=== PATIENT | female | born 1955 | race Caucasian/White ===

== ENCOUNTER 2018-07-24 14:17 | Inpatient (IN) | payer BC ==
[~2018-07-24] VITALS: Ht 157.5 cm; Wt 101.2 kg
[2018-07-24 16:50] VITALS: BP 142/63
--- NOTE | 2018-07-24 17:44 | NUR ---
Dr. Gomez came by at the unit, I let him know that this patient needs admitting orders. He said he was the one in charge but now its Dr. Marie. He said he will let her know
--- NOTE | 2018-07-24 17:56 | NUR ---
Dr. Marie called me, gave her report about this patient. She said she will come and see this patient
[2018-07-24] MEDS ORDERED: normal saline 1000ml 1,000 ML IV SCH (18:24)
[2018-07-24] MEDS ORDERED: potassium Cl 20 mEq SR tablet PO PRN ×2 (18:25)
[2018-07-24] MEDS ORDERED: magnesium 2GM in 50ml NS 50 ML IV PRN (18:25)
[2018-07-24] MEDS ORDERED: magnesium 4gm in 100ml NS 100 ML IV PRN (18:25)
[2018-07-24] MEDS ORDERED: potassium Cl 40MEQ/NS 500ml 500 ML IV PRN ×2 (18:25)
[2018-07-24] MEDS ORDERED: acetaminophen 325mg tablet PO PRN (18:25)
[2018-07-24] MEDS ORDERED: morphine 2 MG/ML inj. syringe IV PRN (18:25)
[2018-07-24] MEDS ORDERED: magnesium Cl slow-release 64mg tablet PO PRN (18:25)
--- NOTE | 2018-07-24 18:45 | NUR ---
Problems reprioritized. Patient report given, questions answered & plan of care reviewed with Jessica MARC.
[2018-07-24] MEDS ORDERED: ESTR0.5T4 PO (18:51)
[2018-07-24] MEDS ORDERED: OMEP40CA37 PO (18:51)
[2018-07-24] MEDS ORDERED: SOLI10TA2 PO (18:51)
[2018-07-24] MEDS ORDERED: VENL150T3 PO (18:51)
[2018-07-24 19:00] VITALS: BP 134/72
[2018-07-24] MEDS ORDERED: HYDROmorphone inj. 0.5 MG/0.5 ML DISP.SYRIN IV PRN (19:10)
[2018-07-24] MEDS: ondansetron/PF 4mg/2ml inj IV PRN (19:47)
[2018-07-24] MEDS: docusate sod 100mg capsule PO SCH (19:53)
[2018-07-24] MEDS: oxybutynin 5mg tablet PO SCH (22:35)
[2018-07-25] VITALS (18 sets, daily range): BP systolic 140–166; BP diastolic 66–107
--- NOTE | 2018-07-25 06:07 | NUR ---
Problems reprioritized. Patient report given, questions answered & plan of care reviewed with Libra MARC. Addendum: 07/25/18 at 0608 by Jessica Lam RN Amended: Links added.
--- NOTE | 2018-07-25 06:15 | NUR ---
Patient in room [facility]. I have received report from MONICO Lopez and had the opportunity to ask questions and assume patient care.
[2018-07-25 06:28] LABS: BASOPHILS % (AUTO) 0.6 % (0-1); EOSINOPHILS # (AUTO) 0.2 X10'3 (0-0.9); EOSINOPHILS % (AUTO) 2.7 % (0-6); HEMATOCRIT 39.1 % (35.0-45.0); HEMOGLOBIN 12.8 g/dl (12.0-16.0); LYMPHOCYTES # (AUTO) 1.9 X10'3 (1.1-4.8); LYMPHOCYTES % (AUTO) 22.8 % (21-51); MEAN CORPUSCULAR HEMOGLOBIN 29.2 PG (27.0-31.0); MEAN CORPUSCULAR HGB CONC 32.6 g/dL (33.0-36.5); MEAN CORPUSCULAR VOLUME 89.3 FL (78-98); MEAN PLATELET VOLUME 7.4 FL (7.4-10.4); MONOCYTES # (AUTO) 0.5 X10'3 (0-0.9); MONOCYTES % (AUTO) 6.4 % (2-12); NEUTROPHILS # (AUTO) 5.6 X10'3 (1.8-7.7); NEUTROPHILS % (AUTO) 67.5 % (42-75); PLATELET COUNT 297 X10'3 (140-440); RED BLOOD COUNT 4.37 X10'6 (4.20-5.60); RED CELL DISTRIBUTION WIDTH 14.7 % (11.5-14.5); WHITE BLOOD COUNT 8.3 X10'3 (4.5-11.0)
[2018-07-25 06:53] LABS: ALBUMIN 3.1 G/DL (3.4-5.0); ANION GAP 9 (8-16); BLOOD UREA NITROGEN 8 MG/DL (7-18); BUN/CREATININE RATIO 11.6 (6.6-38.0); CALCIUM 8.8 MG/DL (8.5-10.1); CHLORIDE 105 MMOL/L (99-107); CREATININE 0.69 MG/DL (0.40-0.90); GLUCOSE 81 MG/DL (70-104); MAGNESIUM 1.9 MG/DL (1.5-2.4); POTASSIUM 3.7 MMOL/L (3.5-5.1); SODIUM 139 MMOL/L (135-145); TOTAL CARBON DIOXIDE 24.6 MMOL/L (24-32); eGFR 86 ML/MIN
[2018-07-25] MEDS: docusate sod 100mg capsule PO SCH ×2 (07:43→19:23)
[2018-07-25] MEDS: oxybutynin 5mg tablet PO SCH ×3 (07:43→21:01)
[2018-07-25] MEDS: pantoprazole 40mg Tablet.DR PO SCH (07:43)
[2018-07-25] MEDS: venlafaxine XR 75mg capsule (Q24H) PO SCH (07:43)
[2018-07-25] MEDS: K and/or MAG REPLACEMENT MC SCH (08:00)
[2018-07-25] MEDS ORDERED: diphenhydrAMINE 50 mg/ml inj ONE (12:24)
[2018-07-25] MEDS ORDERED: fentaNYL/PF 50MCG/1 ML 2ML syringe ONE (12:24)
[2018-07-25] MEDS ORDERED: MIDAZolam 5mg/5ml vial ONE (12:24)
[2018-07-25] MEDS ORDERED: iohexol 300 MG/1 ML 50ml polymer ONE (12:25)
[2018-07-25] MEDS ORDERED: glucagon, human recombinant 1mg kit ONE (12:25)
[2018-07-25] MEDS ORDERED: LIDOcaine Viscous 15ml cup ONE (12:25)
[2018-07-25] MEDS: ondansetron/PF 4mg/2ml inj IV PRN (13:12)
--- NOTE | 2018-07-25 18:38 | NUR ---
Problems reprioritized. Patient report given, questions answered & plan of care reviewed with MONICO Lopez.
[2018-07-26] VITALS: BP 124/66
[2018-07-26 05:26] LABS: BASOPHILS # (AUTO) 0.1 X10'3 (0-0.2); BASOPHILS % (AUTO) 0.6 % (0-1); EOSINOPHILS # (AUTO) 0.3 X10'3 (0-0.9); EOSINOPHILS % (AUTO) 3.5 % (0-6); HEMATOCRIT 38.8 % (35.0-45.0); HEMOGLOBIN 13.1 g/dl (12.0-16.0); LYMPHOCYTES # (AUTO) 2.5 X10'3 (1.1-4.8); LYMPHOCYTES % (AUTO) 29.8 % (21-51); MEAN CORPUSCULAR HEMOGLOBIN 29.9 PG (27.0-31.0); MEAN CORPUSCULAR HGB CONC 33.7 g/dL (33.0-36.5); MEAN CORPUSCULAR VOLUME 88.7 FL (78-98); MEAN PLATELET VOLUME 7.3 FL (7.4-10.4); MONOCYTES # (AUTO) 0.7 X10'3 (0-0.9); MONOCYTES % (AUTO) 8.4 % (2-12); NEUTROPHILS # (AUTO) 4.8 X10'3 (1.8-7.7); NEUTROPHILS % (AUTO) 57.7 % (42-75); PLATELET COUNT 310 X10'3 (140-440); RED BLOOD COUNT 4.37 X10'6 (4.20-5.60); RED CELL DISTRIBUTION WIDTH 14.4 % (11.5-14.5); WHITE BLOOD COUNT 8.3 X10'3 (4.5-11.0)
[2018-07-26 05:29] LABS: ALBUMIN 2.9 G/DL (3.4-5.0); ANION GAP 10 (8-16); BLOOD UREA NITROGEN 10 MG/DL (7-18); BUN/CREATININE RATIO 12.7 (6.6-38.0); CALCIUM 8.7 MG/DL (8.5-10.1); CHLORIDE 105 MMOL/L (99-107); CREATININE 0.79 MG/DL (0.40-0.90); GLUCOSE 124 MG/DL (70-104); MAGNESIUM 1.9 MG/DL (1.5-2.4); POTASSIUM 3.5 MMOL/L (3.5-5.1); SODIUM 139 MMOL/L (135-145); TOTAL CARBON DIOXIDE 24.1 MMOL/L (24-32); eGFR 74 ML/MIN
--- NOTE | 2018-07-26 06:20 | NUR ---
Problems reprioritized. Patient report given, questions answered & plan of care reviewed with JU MARC. Addendum: 07/26/18 at 0620 by Jessica Lam RN Amended: Links added.
[2018-07-26 07:00] VITALS: BP 149/85
[2018-07-26] MEDS: K and/or MAG REPLACEMENT MC SCH (07:41)
[2018-07-26] MEDS: docusate sod 100mg capsule PO SCH (08:00)
[2018-07-26] MEDS: venlafaxine XR 75mg capsule (Q24H) PO SCH (08:05)
[2018-07-26] MEDS: pantoprazole 40mg Tablet.DR PO SCH (08:05)
[2018-07-26] MEDS: oxybutynin 5mg tablet PO SCH (08:05)
--- NOTE | 2018-07-26 11:08 | NUR ---
waiting for doctor to place discharge orders, discharge already in place. patient showering and waiting for MD to finalize discharge. All discharge charting done for nursing at this time.
== END 2018-07-26 12:32 | disposition home or self-care (01) | DRG 446 ==
LOC: SUR 3N 17:04
PROVIDERS: ADMIT Internal Medicine; ATTEND Internal Medicine
PROC: 0FC98ZZ Extirpation of Matter from Common Bile Duct, Via Natural or Artificial Opening Endoscopic (ICD-10-PCS; principal; 2018-07-25)
PROC: BF101ZZ Fluoroscopy of Bile Ducts using Low Osmolar Contrast (ICD-10-PCS; 2018-07-25)
DX: K80.70 Calculus of gallbladder and bile duct without cholecystitis without obstruction (principal); F32.9 Major depressive disorder, single episode, unspecified; K83.8 Other specified diseases of biliary tract; M19.90 Unspecified osteoarthritis, unspecified site; Z90.49 Acquired absence of other specified parts of digestive tract; Z88.5 Allergy status to narcotic agent; Z88.8 Allergy status to other drugs, medicaments and biological substances
CPT/HCPCS: 36415; 80048; 83735; 85025; 87070; 99152; 99153; A4620; C1769; G0378; J1170; J1200; J1610; J2250; J2405; J3010; J7030; Q9967